=== PATIENT | female | born 1980 | race Caucasian/White ===

== ENCOUNTER 2019-12-21 08:44 | Day surgery (SDC) | payer OTHER ==
[2019-12-21 09:02] LABS: Specific Gravity 1.025 (1.005-1.030)
[2019-12-21] MEDS ORDERED: CEFAZOLIN/SWI 2gm 2 GM/20 ML SYR ONE (09:23)
[2019-12-21] MEDS: Ringers Lactate 1,000 ML IV ONE ×2 (09:33→10:05)
[2019-12-21] MEDS: BUPIVACA 0.25%/EPI 0.0005% MDV 50 ML VIAL ONE ×2 (09:58→10:24)
[2019-12-21] MEDS ORDERED: FENTANYL CITR 100 MCG/2 ML ONE ×2 (10:03→11:03)
[2019-12-21] MEDS ORDERED: LIDOCAINE 2% MPF 5 ML VIAL ONE (10:03)
[2019-12-21] MEDS ORDERED: KETOROLAC 30 MG/ML INJ ONE (10:03)
[2019-12-21] MEDS ORDERED: MIDAZOLAM HCL 2 MG/2 ML INJ ONE (10:03)
[2019-12-21] MEDS ORDERED: propofoL 200 MG/20 ML VIAL IV ONE ×2 (10:03→10:24)
[2019-12-21] MEDS ORDERED: ONDANSETRON 4 MG/2 ML VIAL ONE ×2 (10:04→12:24)
[2019-12-21] MEDS ORDERED: ROCURONIUM 50 MG/5 ML VIAL IV ONE (10:04)
[2019-12-21] MEDS ORDERED: dexAMETHasone 4 MG/ML VIAL ONE (10:04)
[2019-12-21] MEDS ORDERED: Ringers Lactate 1,000 ML IV ONE (10:56)
--- NOTE | 2019-12-21 11:03 | P.OP ---
Preoperative diagnosis: Symptomatic Cholelithiasis with Cholecystitis Postoperative diagnosis: Symptomatic Cholelithiasis with Cholecystitis Primary procedure: Laparoscopic cholecystectomy Anesthesia: GETA + Local Estimated blood loss: <10cc Specimen: Gallbladder Findings: Scar tissue @ Hartmanns, Omentum and stomach adhered to GB neck Complications: None Transferred to: Recovery Room Condition: Good
[2019-12-21] MEDS ORDERED: GLYCOPYRROLATE 0.2 MG/ML SYR ONE (11:09)
[2019-12-21] MEDS ORDERED: NEOSTIGMINE 1 MG/ML -5 ML ONE (11:11)
[2019-12-21] MEDS: HYDROMORPHONE HCL 1 MG/ML INJ ONE ×2 (11:30→11:35)
[2019-12-21 11:32] VITALS: O2SAT 100
[2019-12-21] MEDS ORDERED: PROMETHAZINE INJ 25 MG/ML AMP ONE (11:32)
[2019-12-21] MEDS ORDERED: MEPERIDINE HCL 25 MG/ML SYR ONE (11:41)
--- NOTE | 2019-12-21 11:42 | OP ---
Date of Procedure: 12/21/2019 Surgeon: Jack Gong MD, Brief History Of Present Illness: The patient is a 39-year-old female, who presents to clinic with c omplaints of abdominal pain. Ultrasound workup revealed symptomatic cholelithiasis with possible gal lbladder polyps. Preoperative Diagnosis: Symptomatic cholelithiasis with cholecystitis. Postoperative Diagnosis: Symptomatic cholelithiasis with cholecystitis. Procedure Performed: Laparoscopic cholecystectomy. Anesthesia: General endotracheal plus local with 0.25% Marcaine with epinephrine. Estimated Blood Loss: Less than 10 mL. Specimen: Gallbladder. Findings: 1.Scar tissue in Jacque pouch. 2.Omentum and stomach adherent to the gallbladder neck. Complications: None. Disposition: Transferred to the recovery room in good condition. Procedure In Detail: After informed was obtained, the patient was brought to the operating room, pre pped and draped in the usual sterile fashion after adequate anesthesia achieved and supraumbilical ar ea was anesthetized with 0.25% Marcaine and sharply incised. A 5 mm 0-degree optical trocar was intr oduced in the abdomen without evidence of complication. Insufflation was obtained to 15 mmHg. At th is time, there was no injury to vital structure upon entering the abdomen. The additional trocar was chosen in the epigastrium. This similarly anesthetized, sharply incised. A 5 mm trocar was introdu mikey in the abdomen without evidence of complication. Additional trocar was placed in the right upper quadrant. This similarly anesthetized, sharply incised. A 5 mm trocar was introduced in the abdome n without evidence of complication. The umbilical trocar was then up-sized to a 12 mm under direct v isualization without evidence of complication. The patient was positioned head up right-side up posi tion. Ratcheted grasper was used to grasp the patient's gallbladder, paced towards the patient's rig ht shoulder, and dissection continued down to the Jacque pouch. There were significant inflammator y changes and scarring as described above. Blunt dissection and electrocautery were used to remove t he omentum from the anterior surface of the gallbladder neck. Dissection was continued down circumfe rentially, encircled 2 structures entering the gallbladder. There was identified as both cystic duct and cystic artery. Critical view of safety was obtained at this point. After these structures were skeletonized, Titanium clips were brought and doubly ligating the cystic duct and cystic artery and then Endo Indigo were brought in and used to ligate the 2 above structures. The gallbladder was mary riccardo without evidence of complication, placed in EndoCatch, removed the umbilical trocar. There was s ome small bowel spillage with manipulation of clip and a small hole anterior surface of the gallbladd er after removal simply due to traction injury. The gallbladder was sent off for pathologic examinat ion. The abdomen was copiously irrigated and suctioned out until it was completely dry. There were minimal hemostatic measures on the hepatic bed with good hemostasis at the end. Clips were found to be in good anatomic position without any leakage. The area was copiously irrigated multiple times un til completely and suctioned out. Once again, the patient was positioned in neutral position. The u mbilical trocar was removed. The umbilical trocar site was closed using a Tigre-Cathy suture pas ser with 0 Vicryl in interrupted fashion with good approximation tissues. The remainder of the abdom en was inspected. No additional maneuvers were required. The abdomen was then desufflated under dir ect visualization without evidence of complication. All trocars were removed. All skin incisions we re copiously irrigated and closed with 4-0 Monocryl in a running fashion. Dermabond was placed over top. The patient tolerated the procedure without evidence of complication and transferred to PACU in good condition. All counts were correct at the end of the case. LOIS/TEENA Voice ID: [id number] Report ID: [id number]
[2019-12-21] MEDS ORDERED: HYDROCODONE/APAP 10/325 TAB ONE (12:21)
[2019-12-21 12:24] VITALS: TEMP 97
[2019-12-21 14:17] VITALS: BP 128/75
== END 2019-12-21 12:57 | disposition home or self-care (01) ==
LOC: OR 08:44
PROVIDERS: ATTEND Surgery
PROC: 0FT44ZZ Resection of Gallbladder, Percutaneous Endoscopic Approach (ICD-10-PCS; principal; 2019-12-21 10:30)
DX: K80.10 Calculus of gallbladder with chronic cholecystitis without obstruction (principal)
CPT/HCPCS: 81025; 88304; 47562; J2704 ×2; J1100; J2550; J2250; J3010 ×2; J2175; J1170; J2710; J0690; J7120 ×2; J2405 ×2